=== PATIENT | male | born 1950 | race Caucasian/White ===

== ENCOUNTER 2017-06-18 15:29 | Inpatient (IN) | payer MEDICAID ==
[~2017-06-18] VITALS: Ht 172.7 cm; Wt 74.6 kg
[2017-06-18] MEDS ORDERED: HYDROcodone/APAP 5/325 TABLET PO ONE (16:30)
[2017-06-18] MEDS ORDERED: OMEP20TA62 PO (16:59)
[2017-06-18] MEDS ORDERED: SODIUM CHLORIDE FLUSH 10ML SYR IVF ONE (17:00)
[2017-06-18] MEDS ORDERED: ONDANSETRON 2MG/ML, 2ML IVPush ONE (17:00)
[2017-06-18] MEDS ORDERED: HYDROmorphone 1 MG/ML, 1ML IVPush PRN (17:00)
[2017-06-18] MEDS ORDERED: CLINDAMYCIN PMX 600MG/50ML 50 ML IV ONE (17:00)
[2017-06-18 17:19] LABS: HEMATOCRIT 34.5 % (39.2-51.8); HEMOGLOBIN 11.7 g/dL (13.7-18.0); WHITE BLOOD COUNT 5.3 x10^3/uL (3.4-10)
[2017-06-18] MEDS ORDERED: HYDROmorphone 1 MG/ML, 1ML ONE (17:23)
[2017-06-18] MEDS ORDERED: ONDANSETRON 2MG/ML, 2ML ONE (17:23)
[2017-06-18] MEDS ORDERED: CLINDAMYCIN PMX 600MG/50ML 50 ML ONE (17:23)
[2017-06-18 17:32] LABS: ASPARTATE AMINO TRANSFERASE 27 U/L (15-37); BLOOD UREA NITROGEN 17 mg/dL (7-18)
[2017-06-18] MEDS ORDERED: DIPH,PERTUSS(ACELL),TET VAC/PF 0.5 ML IM-VACC ONE (19:00)
[2017-06-18] MEDS ORDERED: BACITRACIN ZINC OINT 500U/GM, 0.9 GM ONE (19:11)
[2017-06-18] MEDS ORDERED: morphine SULFATE 10 MG/ML, 1ML IVPush PRN (19:30)
[2017-06-18] MEDS ORDERED: BISACODYL 10 MG SUPP PR PRN (19:30)
[2017-06-18] MEDS ORDERED: DOCUSATE 100 MG CAPSULE PO PRN (19:30)
[2017-06-18] MEDS ORDERED: ONDANSETRON 2MG/ML, 2ML IVPush PRN (19:30)
[2017-06-18] MEDS ORDERED: VANCOMYCIN PER PHARMACY MC PRN (19:30)
[2017-06-18] MEDS ORDERED: POLYETHYLENE GLYCOL 17 GM PACKET PO PRN (19:30)
[2017-06-18] MEDS ORDERED: PROMETHAZINE 25 MG/ML, 1ML IM PRN (19:30)
[2017-06-18] MEDS ORDERED: hydrALAzine 20 MG/ML, 1ML IVPush PRN (19:30)
[2017-06-18] MEDS ORDERED: ACETAMINOPHEN 325 MG TABLET PO PRN (19:30)
[2017-06-18 19:47] LABS: DAU SCREEN DISCLAIMER
[2017-06-18] MEDS ORDERED: PHARMACOKINETIC MONITORING MC PRN (20:30)
[2017-06-18] MEDS ORDERED: PHARMACOKINETIC CONSULTATION MC ONE (20:30)
[2017-06-18] MEDS: LACTATED RINGERS 1,000 ML IV SCH (22:08)
[2017-06-18] MEDS: CLINDAMYCIN PMX 600MG/50ML 50 ML IV SCH (22:09)
[2017-06-18] MEDS: LACTOBACILLUS CHEW TABLET PO SCH (22:09)
[2017-06-18] MEDS: VANCOMYCIN 1,400 MG in SODIUM CHLORIDE 0.9% 250 ML IV SCH (23:08)
[2017-06-18] MEDS: OXYcodone IR 5MG TABLET PO PRN (23:47)
[2017-06-19 03:52] VITALS: BP 110/64
[2017-06-19 05:23] LABS: HEMATOCRIT 35.5 % (39.2-51.8); HEMOGLOBIN 11.9 g/dL (13.7-18.0); WHITE BLOOD COUNT 5.8 x10^3/uL (3.4-10)
[2017-06-19 05:39] LABS: BLOOD UREA NITROGEN 14 mg/dL (7-18)
[2017-06-19] MEDS: CLINDAMYCIN PMX 600MG/50ML 50 ML IV SCH ×3 (05:56→21:39)
[2017-06-19 08:22] VITALS: BP 108/65
[2017-06-19] MEDS: LACTOBACILLUS CHEW TABLET PO SCH ×3 (09:42→21:39)
[2017-06-19] MEDS: LACTATED RINGERS 1,000 ML IV SCH ×2 (10:38→21:39)
[2017-06-19] MEDS: VANCOMYCIN 1,400 MG in SODIUM CHLORIDE 0.9% 250 ML IV SCH ×2 (10:38→23:07)
[2017-06-19 14:13] VITALS: BP 116/71
[2017-06-19] MEDS: OXYcodone IR 5MG TABLET PO PRN ×2 (17:03→17:58)
[2017-06-19 19:01] VITALS: BP 103/65
[2017-06-20] MEDS: OXYcodone IR 5MG TABLET PO PRN ×3 (00:42→21:20)
[2017-06-20 02:18] VITALS: BP 122/73
[2017-06-20] MEDS: CLINDAMYCIN PMX 600MG/50ML 50 ML IV SCH (06:20)
[2017-06-20] MEDS: LACTATED RINGERS 1,000 ML IV SCH ×2 (06:22→14:30)
[2017-06-20] MEDS ORDERED: BACITRACIN 50,000 UNIT ONE (07:56)
[2017-06-20] MEDS ORDERED: MIDAZOLAM 1 MG/ML, 2ML ONE (08:05)
[2017-06-20] MEDS ORDERED: FENTANYL PF 250 MCG/5ML ONE (08:06)
[2017-06-20] MEDS ORDERED: METOCLOPRAMIDE 5 MG/ML, 2ML IV PRN (09:00)
[2017-06-20] MEDS ORDERED: OXYcodone 5 MG/5 ML ORAL.SOL UDC PO PRN (09:00)
[2017-06-20] MEDS ORDERED: ALBUTEROL SULFATE 2.5 MG/3 ML NPPB PRN (09:00)
[2017-06-20] MEDS ORDERED: PROMETHAZINE 25 MG/ML, 1ML IV PRN (09:00)
[2017-06-20] MEDS ORDERED: METOPROLOL 1 MG/ML, 5ML IV PRN (09:00)
[2017-06-20] MEDS ORDERED: hydrALAzine 20 MG/ML, 1ML IV PRN (09:00)
[2017-06-20] MEDS ORDERED: ACETAMINOPHEN 325 MG TABLET PO PRN (09:00)
[2017-06-20] MEDS ORDERED: HYDROcodone/APAP 7.5-325MG/15ML UDC PO PRN (09:00)
[2017-06-20] MEDS ORDERED: EPHEDRINE 50 MG/ML, 1ML IVPush PRN (09:00)
[2017-06-20] MEDS ORDERED: MEPERIDINE/PF 25MG/0.5ML IVPush PRN (09:00)
[2017-06-20] MEDS ORDERED: LABETALOL 5MG/ML, 20ML IV PRN (09:00)
[2017-06-20] MEDS ORDERED: ONDANSETRON 2MG/ML, 2ML IVPush PRN (09:00)
[2017-06-20] MEDS: LACTOBACILLUS CHEW TABLET PO SCH ×4 (09:00→21:19)
[2017-06-20] MEDS ORDERED: NEOSPORIN OINT, 15GM ONE (09:23)
[2017-06-20] MEDS ORDERED: HYDROmorphone 2 MG/ML, 1ML ONE (10:00)
[2017-06-20] MEDS ORDERED: FENTANYL PF 100 MCG/2ML ONE (10:00)
[2017-06-20] MEDS ORDERED: OXYcodone 5 MG/5 ML ORAL.SOL UDC ONE (10:01)
[2017-06-20] MEDS: FENTANYL PF 100 MCG/2ML IV PRN ×2 (10:02→10:13)
[2017-06-20] MEDS: HYDROmorphone 1 MG/ML, 1ML IV PRN ×4 (10:20→10:44)
[2017-06-20 14:00] VITALS: BP 127/75
[2017-06-20] MEDS: ERGOCALCIFEROL 50,000 UNIT CAPSULE PO SCH (15:55)
[2017-06-20] MEDS: CEFAZOLIN PMX 1GM/50ML 50 ML IV SCH (16:13)
[2017-06-20] MEDS ORDERED: GLYCOPYRROLATE 0.2MG/1ML ONE (16:57)
[2017-06-20] MEDS ORDERED: CEFAZOLIN 1,000 MG ONE (16:57)
[2017-06-20] MEDS ORDERED: SUCCINYLCHOLINE 20 MG/ML, 10ML ONE (16:57)
[2017-06-20] MEDS ORDERED: DEXAMETHASONE 4 MG/ML, 1ML ONE (16:57)
[2017-06-20] MEDS ORDERED: ONDANSETRON 2MG/ML, 2ML ONE (16:57)
[2017-06-20] MEDS ORDERED: ROCURONIUM 10 MG/ML ONE (16:57)
[2017-06-20] MEDS ORDERED: PROPOFOL 10 MG/ML, 20ML ONE (16:57)
[2017-06-20 18:57] VITALS: BP 129/76
[2017-06-20] MEDS: ZOLPIDEM 5MG TABLET PO PRN (21:20)
[2017-06-21] MEDS: CEFAZOLIN PMX 1GM/50ML 50 ML IV SCH ×2 (00:10→07:31)
[2017-06-21 03:57] VITALS: BP 106/71
[2017-06-21] MEDS: LACTOBACILLUS CHEW TABLET PO SCH ×3 (07:31→20:46)
[2017-06-21 07:44] VITALS: BP 100/55
[2017-06-21] MEDS: OXYcodone IR 5MG TABLET PO PRN ×2 (10:47→18:21)
[2017-06-21 12:19] LABS: HEMATOCRIT 38.8 % (39.2-51.8); HEMOGLOBIN 13.1 g/dL (13.7-18.0); WHITE BLOOD COUNT 11.6 x10^3/uL (3.4-10)
[2017-06-21] MEDS: ENOXAPARIN 40 MG/0.4 ML SQ SCH (12:42)
[2017-06-21 13:11] VITALS: BP 111/57
[2017-06-21 19:46] VITALS: BP 99/57
[2017-06-22 00:33] VITALS: BP 108/63
[2017-06-22 07:10] VITALS: BP 112/68
[2017-06-22] MEDS: LACTOBACILLUS CHEW TABLET PO SCH ×3 (08:06→20:38)
[2017-06-22] MEDS ORDERED: POLY17PO5 PO (08:17)
[2017-06-22] MEDS ORDERED: ERGO500017 PO (08:17)
[2017-06-22] MEDS ORDERED: ENOX40SY4 SQ (08:17)
[2017-06-22] MEDS ORDERED: OXYC5TAB3 PO (08:17)
[2017-06-22] MEDS ORDERED: SULF1TAB24 PO (08:23)
[2017-06-22] MEDS: MEROPENEM 500 MG in SODIUM CHLORIDE 0.9% 100 ML IV SCH ×2 (09:49→16:44)
[2017-06-22] MEDS ORDERED: VANCOMYCIN PER PHARMACY MC PRN (10:00)
[2017-06-22] MEDS ORDERED: PHARMACOKINETIC CONSULTATION MC ONE (10:00)
[2017-06-22] MEDS ORDERED: PHARMACOKINETIC MONITORING MC PRN (10:00)
[2017-06-22 10:03] LABS: BLOOD UREA NITROGEN 13 mg/dL (7-18)
[2017-06-22 10:11] LABS: HEMATOCRIT 39.1 % (39.2-51.8); HEMOGLOBIN 13.1 g/dL (13.7-18.0)
[2017-06-22] MEDS: VANCOMYCIN 1,500 MG in SODIUM CHLORIDE 0.9% 250 ML IV SCH ×2 (11:49→23:38)
[2017-06-22] MEDS: ENOXAPARIN 40 MG/0.4 ML SQ SCH (11:49)
[2017-06-22] MEDS: OXYcodone IR 5MG TABLET PO PRN ×3 (11:55→22:11)
[2017-06-22 14:20] VITALS: BP 100/57
[2017-06-22 18:20] VITALS: BP 96/55
[2017-06-23 00:45] VITALS: BP 108/76
[2017-06-23] MEDS: MEROPENEM 500 MG in SODIUM CHLORIDE 0.9% 100 ML IV SCH ×3 (02:08→17:34)
[2017-06-23 08:00] VITALS: BP 100/70
[2017-06-23] MEDS: LACTOBACILLUS CHEW TABLET PO SCH ×3 (08:51→19:49)
[2017-06-23] MEDS: OXYcodone IR 5MG TABLET PO PRN ×3 (08:52→19:49)
[2017-06-23] MEDS: VANCOMYCIN 1,500 MG in SODIUM CHLORIDE 0.9% 250 ML IV SCH ×2 (11:27→23:48)
[2017-06-23] MEDS: ENOXAPARIN 40 MG/0.4 ML SQ SCH (12:30)
[2017-06-23 15:30] VITALS: BP 101/58
[2017-06-23 18:39] VITALS: BP 128/62
[2017-06-24 00:57] VITALS: BP 104/45
[2017-06-24] MEDS: MEROPENEM 500 MG in SODIUM CHLORIDE 0.9% 100 ML IV SCH ×3 (02:17→17:22)
[2017-06-24] MEDS: OXYcodone IR 5MG TABLET PO PRN ×4 (05:42→21:12)
[2017-06-24 07:15] VITALS: BP 97/58
[2017-06-24] MEDS: LACTOBACILLUS CHEW TABLET PO SCH ×3 (09:17→21:11)
[2017-06-24] MEDS: ALUMINUM/MAG/SIMETHICONE 30 ML UDC PO PRN (10:21)
[2017-06-24] MEDS: DOCUSATE 100 MG CAPSULE PO SCH (10:21)
[2017-06-24] MEDS: VANCOMYCIN 1,500 MG in SODIUM CHLORIDE 0.9% 250 ML IV SCH (11:36)
[2017-06-24] MEDS: ENOXAPARIN 40 MG/0.4 ML SQ SCH ×2 (13:36→13:40)
[2017-06-24 14:04] VITALS: BP 115/71
[2017-06-24] MEDS: ZOLPIDEM 5MG TABLET PO PRN (23:35)
[2017-06-25 01:26] VITALS: BP 110/70
[2017-06-25] MEDS: MEROPENEM 500 MG in SODIUM CHLORIDE 0.9% 100 ML IV SCH ×3 (01:36→18:13)
[2017-06-25] MEDS: OXYcodone IR 5MG TABLET PO PRN ×4 (01:36→23:07)
[2017-06-25] MEDS: VANCOMYCIN 1,500 MG in SODIUM CHLORIDE 0.9% 250 ML IV SCH ×2 (05:13→23:07)
[2017-06-25 08:12] VITALS: BP 107/69
[2017-06-25] MEDS: LACTOBACILLUS CHEW TABLET PO SCH ×3 (09:07→20:45)
[2017-06-25] MEDS: DOCUSATE 100 MG CAPSULE PO SCH ×2 (09:07→20:45)
[2017-06-25] MEDS: ENOXAPARIN 40 MG/0.4 ML SQ SCH ×2 (12:30→13:34)
[2017-06-25 17:21] VITALS: BP 111/67
[2017-06-25 19:43] VITALS: BP 119/73
[2017-06-25] MEDS ORDERED: hydrALAzine 20 MG/ML, 1ML IVPush PRN (20:30)
[2017-06-25] MEDS ORDERED: PROMETHAZINE 25 MG/ML, 1ML IM PRN (20:30)
[2017-06-25] MEDS ORDERED: VANCOMYCIN PER PHARMACY MC PRN (20:30)
[2017-06-25] MEDS: ZOLPIDEM 5MG TABLET PO PRN (23:07)
[2017-06-26 01:17] VITALS: BP 122/70
[2017-06-26] MEDS: MEROPENEM 500 MG in SODIUM CHLORIDE 0.9% 100 ML IV SCH ×3 (02:41→18:41)
[2017-06-26 06:48] VITALS: BP 108/56
[2017-06-26 08:54] LABS: HEMATOCRIT 36.9 % (39.2-51.8); HEMOGLOBIN 12.3 g/dL (13.7-18.0); WHITE BLOOD COUNT 7.2 x10^3/uL (3.4-10)
[2017-06-26 09:01] LABS: BLOOD UREA NITROGEN 15 mg/dL (7-18)
[2017-06-26] MEDS: DOCUSATE 100 MG CAPSULE PO SCH ×2 (09:34→20:19)
[2017-06-26] MEDS: LACTOBACILLUS CHEW TABLET PO SCH ×3 (09:34→20:19)
[2017-06-26] MEDS: OXYcodone IR 5MG TABLET PO PRN (13:28)
[2017-06-26 13:34] VITALS: BP 109/65
[2017-06-26] MEDS: ALUMINUM/MAG/SIMETHICONE 30 ML UDC PO PRN (16:35)
[2017-06-26] MEDS: VANCOMYCIN 1,500 MG in SODIUM CHLORIDE 0.9% 250 ML IV SCH (16:35)
[2017-06-26 19:13] VITALS: BP 117/77
[2017-06-26] MEDS: ENOXAPARIN 40 MG/0.4 ML SQ SCH (20:20)
[2017-06-27 00:25] VITALS: BP 114/66
[2017-06-27] MEDS: MEROPENEM 500 MG in SODIUM CHLORIDE 0.9% 100 ML IV SCH ×3 (02:38→18:07)
[2017-06-27] MEDS: ALUMINUM/MAG/SIMETHICONE 30 ML UDC PO PRN ×3 (02:39→23:13)
[2017-06-27] MEDS: OXYcodone IR 5MG TABLET PO PRN ×4 (05:11→19:26)
[2017-06-27 08:05] VITALS: BP 115/73
[2017-06-27] MEDS: DOCUSATE 100 MG CAPSULE PO SCH ×2 (08:35→20:11)
[2017-06-27] MEDS: LACTOBACILLUS CHEW TABLET PO SCH ×3 (08:35→20:11)
[2017-06-27] MEDS: VANCOMYCIN 1,500 MG in SODIUM CHLORIDE 0.9% 250 ML IV SCH (11:01)
[2017-06-27 15:00] VITALS: BP 109/66
[2017-06-27] MEDS: ERGOCALCIFEROL 50,000 UNIT CAPSULE PO SCH (15:35)
[2017-06-27 18:36] VITALS: BP 100/60
[2017-06-27] MEDS: ENOXAPARIN 40 MG/0.4 ML SQ SCH (20:11)
[2017-06-28] MEDS: MEROPENEM 500 MG in SODIUM CHLORIDE 0.9% 100 ML IV SCH ×3 (02:18→18:31)
[2017-06-28] MEDS: ALUMINUM/MAG/SIMETHICONE 30 ML UDC PO PRN ×2 (03:32→20:22)
[2017-06-28 04:15] VITALS: BP 108/67
[2017-06-28] MEDS: VANCOMYCIN 1,500 MG in SODIUM CHLORIDE 0.9% 250 ML IV SCH ×2 (05:08→23:10)
[2017-06-28] MEDS: OXYcodone IR 5MG TABLET PO PRN ×3 (06:16→16:09)
[2017-06-28 07:34] VITALS: BP 110/72
[2017-06-28] MEDS: LACTOBACILLUS CHEW TABLET PO SCH ×3 (08:16→20:10)
[2017-06-28] MEDS: DOCUSATE 100 MG CAPSULE PO SCH ×2 (08:16→20:10)
[2017-06-28 12:35] VITALS: BP 104/55
[2017-06-28 20:07] VITALS: BP 106/62
[2017-06-28] MEDS: ENOXAPARIN 40 MG/0.4 ML SQ SCH (20:11)
[2017-06-29] MEDS: MEROPENEM 500 MG in SODIUM CHLORIDE 0.9% 100 ML IV SCH ×2 (02:30→10:19)
[2017-06-29 04:00] VITALS: BP 104/72
[2017-06-29] MEDS: ALUMINUM/MAG/SIMETHICONE 30 ML UDC PO PRN ×2 (04:15→10:14)
[2017-06-29 07:13] VITALS: BP 116/70
[2017-06-29] MEDS: DOCUSATE 100 MG CAPSULE PO SCH (08:24)
[2017-06-29] MEDS: LACTOBACILLUS CHEW TABLET PO SCH ×2 (08:25→17:08)
[2017-06-29] MEDS: OXYcodone IR 5MG TABLET PO PRN ×2 (10:19→16:06)
[2017-06-29 14:01] VITALS: BP 96/63
[2017-06-29] MEDS: VANCOMYCIN 1,500 MG in SODIUM CHLORIDE 0.9% 250 ML IV SCH (17:00)
[2017-06-29 18:15] VITALS: BP 130/70
== END 2017-06-29 18:41 | disposition home health service (06) | DRG 493 ==
LOC: ED 19:52 → EDIP 20:06 → 4NOR 20:12
PROC: 0QSH36Z Reposition Left Tibia with Intramedullary Internal Fixation Device, Percutaneous Approach (ICD-10-PCS; 2017-06-20)
PROC: 0QSK36Z Reposition Left Fibula with Intramedullary Internal Fixation Device, Percutaneous Approach (ICD-10-PCS; principal; 2017-06-20 08:00)
DX: S82.422A Displaced transverse fracture of shaft of left fibula, initial encounter for closed fracture (principal); L03.116 Cellulitis of left lower limb; E44.1 Mild protein-calorie malnutrition; L03.115 Cellulitis of right lower limb; S82.392A Other fracture of lower end of left tibia, initial encounter for closed fracture; K21.9 Gastro-esophageal reflux disease without esophagitis; S82.202A Unspecified fracture of shaft of left tibia, initial encounter for closed fracture; F17.200 Nicotine dependence, unspecified, uncomplicated; F15.10 Other stimulant abuse, uncomplicated; F41.9 Anxiety disorder, unspecified; E55.9 Vitamin D deficiency, unspecified; D64.9 Anemia, unspecified; Z88.0 Allergy status to penicillin; Z68.25 Body mass index [BMI] 25.0-25.9, adult
CPT/HCPCS: 36415; 71010; 76001; 80048; 80053; 80202; 80307; 81003; 82306; 85025; 85610; 85651; 86140; 87040; 93005; 96374; 96375; C1713; J0690; J1100; J1170; J1650; J2185; J2250; J2405; J2704; J3010; J3370; J3490; J0330; J7050; J7120

== ENCOUNTER 2017-06-29 23:43 | Emergency (ER) | payer MEDICAID ==
[~2017-06-29] VITALS: Ht 172.7 cm; Wt 72.0 kg
[~2017-06-29 23:43] MED LIST: ENOX40SY4 SQ; ERGO500017 PO; OMEP20TA62 PO; OXYC5TAB3 PO; POLY17PO5 PO; SULF1TAB24 PO
[2017-06-30] MEDS ORDERED: HYDROmorphone 1 MG/ML, 1ML ONE (00:45)
[2017-06-30] MEDS ORDERED: HYDROmorphone 1 MG/ML, 1ML IM ONE (01:00)
[2017-06-30 01:27] VITALS: BP 118/68
== END 2017-06-30 01:30 | disposition home or self-care (01) ==
LOC: ED 23:44
DX: M79.662 Pain in left lower leg (principal)
CPT/HCPCS: 96372; 99283; J1170

== ENCOUNTER 2017-08-01 14:54 | Emergency (ER) | payer MEDICAID ==
[~2017-08-01] VITALS: Ht 177.8 cm; Wt 69.0 kg
[2017-08-01 14:56] VITALS: BP 116/72
== END 2017-08-01 15:08 | disposition left against medical advice (07) ==
LOC: ED 15:02
DX: R10.9 Unspecified abdominal pain (principal); Z53.21 Procedure and treatment not carried out due to patient leaving prior to being seen by health care provider

== ENCOUNTER 2017-08-01 15:17 | Emergency (ER) | payer MEDICAID ==
[~2017-08-01] VITALS: Ht 177.8 cm; Wt 69.7 kg
[2017-08-01 16:04] LABS: HEMATOCRIT 44.6 % (39.2-51.8); HEMOGLOBIN 14.8 g/dL (13.7-18.0); WHITE BLOOD COUNT 7.5 x10^3/uL (3.4-10)
[2017-08-01 16:12] LABS: BLOOD UREA NITROGEN 17 mg/dL (7-18)
[2017-08-01 16:15] LABS: ASPARTATE AMINO TRANSFERASE 17 U/L (15-37)
[2017-08-01 19:45] VITALS: BP 111/70
== END 2017-08-01 19:47 | disposition home or self-care (01) ==
LOC: ED 15:45
DX: K85.10 Biliary acute pancreatitis without necrosis or infection (principal); F15.20 Other stimulant dependence, uncomplicated; Z88.0 Allergy status to penicillin
CPT/HCPCS: 36415; 76700; 80053; 81001; 83690; 85025; 87086; 99285

== ENCOUNTER 2017-08-22 15:19 | Emergency (ER) | payer MEDICAID ==
[~2017-08-22] VITALS: Ht 175.3 cm; Wt 70.9 kg
[2017-08-22 16:29] LABS: HEMATOCRIT 45.4 % (39.2-51.8); HEMOGLOBIN 15.1 g/dL (13.7-18.0); WHITE BLOOD COUNT 6.8 x10^3/uL (3.4-10)
[2017-08-22] MEDS ORDERED: CEPHALEXIN 500 MG CAPSULE PO SCH (17:30)
[2017-08-22] MEDS ORDERED: CEPHALEXIN 500 MG CAPSULE ONE (17:35)
[2017-08-22 17:40] VITALS: BP 128/86
== END 2017-08-22 17:45 | disposition home or self-care (01) ==
LOC: ED 17:11
DX: S89.92XA Unspecified injury of left lower leg, initial encounter (principal); L03.116 Cellulitis of left lower limb; F15.120 Other stimulant abuse with intoxication, uncomplicated
CPT/HCPCS: 36415; 85025; 99285

== ENCOUNTER 2017-08-23 16:26 | Emergency (ER) | payer MEDICAID ==
[~2017-08-23] VITALS: Ht 175.3 cm; Wt 71.1 kg
[2017-08-23 16:30] VITALS: BP 121/80
== END 2017-08-23 17:08 | disposition home or self-care (01) ==
LOC: ED 17:02
DX: L03.116 Cellulitis of left lower limb (principal)
CPT/HCPCS: 99283

== ENCOUNTER 2017-08-24 14:38 | Emergency (ER) | payer MEDICAID ==
[~2017-08-24] VITALS: Ht 177.8 cm; Wt 70.0 kg
[2017-08-24] MEDS ORDERED: CEFAZOLIN 1,000 MG ONE (15:19)
[2017-08-24] MEDS ORDERED: CEFAZOLIN 1,000 MG IM ONE (15:30)
[2017-08-24 16:13] VITALS: BP 107/61
== END 2017-08-24 16:16 | disposition home or self-care (01) ==
LOC: ED 15:29
DX: L03.116 Cellulitis of left lower limb (principal); Z88.0 Allergy status to penicillin
CPT/HCPCS: 96372; 99283; J0690

== ENCOUNTER 2017-09-09 20:39 | Emergency (ER) | payer MEDICAID ==
[~2017-09-09] VITALS: Ht 175.3 cm; Wt 70.0 kg
[2017-09-09 20:42] VITALS: BP 113/72
[2017-09-09] MEDS ORDERED: PERMETHRIN CRM 5%, 60GM ONE (21:35)
== END 2017-09-09 21:46 | disposition home or self-care (01) ==
LOC: ED 21:40
DX: R21 Rash and other nonspecific skin eruption (principal)
CPT/HCPCS: 99283

== ENCOUNTER 2018-02-07 07:01 | Emergency (ER) | payer MEDICARE ==
[~2018-02-07] VITALS: Ht 175.3 cm; Wt 60.0 kg
[2018-02-07 07:45] LABS: BASOPHILS # (AUTO) 0.08 x10^3/uL (0-0.1); BASOPHILS % (AUTO) 1 % (0-1); EOSINOPHILS # (AUTO) 0.16 x10^3/uL (0-0.4); EOSINOPHILS % (AUTO) 2 % (1-7); LYMPHOCYTES % (AUTO) 29 % (22-44); MD NO; MEAN CORPUSCULAR HEMOGLOBIN 31.4 pg (27.5-34.5); MEAN CORPUSCULAR HGB CONC 33.6 g/dL (33.2-36.2); MEAN CORPUSCULAR VOLUME 93.4 fL (81-97); MEAN PLATELET VOLUME 6.7 fL (7.4-10.4); MONOCYTES # (AUTO) 0.66 x10^3/uL (0.2-0.8); MONOCYTES % (AUTO) 10 % (2-9); NEUTROPHILS # (AUTO) 3.97 x10^3/uL (1.8-6.8); NEUTROPHILS % (AUTO) 58 % (42-75); PLATELET COUNT 332 x10^3/uL (130-400); RED BLOOD COUNT 5.02 x10^6/uL (4.38-5.82); RED CELL DISTRIBUTION WIDTH 14.5 % (9.4-14.8)
[2018-02-07 07:56] LABS: ALANINE AMINOTRANSFERASE 20 U/L (12-78); ALBUMIN 3.2 g/dL (3.4-5.0); ANION GAP 4 mmol/L (5-15); CALCIUM 8.7 mg/dL (8.5-10.1); CHLORIDE 107 mmol/L (98-107)
[2018-02-07 07:59] LABS: ALKALINE PHOSPHATASE 127 U/L (45-117); BILIRUBIN,TOTAL 0.5 mg/dL (0.2-1.0); CREATININE 0.56 mg/dL (0.7-1.3); TOTAL PROTEIN 7.1 g/dL (6.4-8.2)
[2018-02-07 11:50] VITALS: BP 101/71
== END 2018-02-07 11:53 | disposition home or self-care (01) ==
LOC: ED 08:53
DX: R53.1 Weakness (principal); H65.02 Acute serous otitis media, left ear; B34.9 Viral infection, unspecified; F15.10 Other stimulant abuse, uncomplicated; Z72.9 Problem related to lifestyle, unspecified; Z59.0 Homelessness
CPT/HCPCS: 36415; 80053; 85025; 93005; 99285

== ENCOUNTER 2018-02-07 18:23 | Emergency (ER) | payer MEDICARE ==
[~2018-02-07] VITALS: Ht 175.3 cm; Wt 64.0 kg
[2018-02-07 18:27] VITALS: BP 104/69
== END 2018-02-07 20:07 | disposition home or self-care (01) ==
LOC: ED 20:05
DX: H65.03 Acute serous otitis media, bilateral (principal); J02.8 Acute pharyngitis due to other specified organisms; B96.89 Other specified bacterial agents as the cause of diseases classified elsewhere; Z88.0 Allergy status to penicillin; Z59.0 Homelessness
CPT/HCPCS: 87081; 87880; 99284

== ENCOUNTER 2018-07-06 11:05 | Inpatient (IN) | payer MEDICARE ==
[~2018-07-06] VITALS: Ht 175.3 cm; Wt 69.2 kg
[2018-07-06 11:50] LABS: BASOPHILS # (AUTO) 0.05 x10^3/uL (0-0.1); BASOPHILS % (AUTO) 1 % (0-1); EOSINOPHILS # (AUTO) 0.19 x10^3/uL (0-0.4); EOSINOPHILS % (AUTO) 2 % (1-7); LYMPHOCYTES # (AUTO) 1.39 x10^3/uL (1-3.4); LYMPHOCYTES % (AUTO) 18 % (22-44); MD NO; MEAN CORPUSCULAR HEMOGLOBIN 32.4 pg (27.5-34.5); MEAN CORPUSCULAR HGB CONC 34.2 g/dL (33.2-36.2); MEAN CORPUSCULAR VOLUME 94.9 fL (81-97); MEAN PLATELET VOLUME 6.5 fL (7.4-10.4); MONOCYTES # (AUTO) 0.71 x10^3/uL (0.2-0.8); MONOCYTES % (AUTO) 9 % (2-9); NEUTROPHILS # (AUTO) 5.43 x10^3/uL (1.8-6.8); NEUTROPHILS % (AUTO) 70 % (42-75); PLATELET COUNT 258 x10^3/uL (130-400); RED BLOOD COUNT 2.55 x10^6/uL (4.38-5.82); RED CELL DISTRIBUTION WIDTH 14.2 % (9.4-14.8)
[2018-07-06 12:04] LABS: ALBUMIN 2.5 g/dL (3.4-5.0); ANION GAP 5 mmol/L (5-15); CHLORIDE 101 mmol/L (98-107); CREATININE 0.48 mg/dL (0.7-1.3)
[2018-07-06] MEDS ORDERED: ONDANSETRON ODT 4 MG PO PRN (13:00)
[2018-07-06] MEDS ORDERED: ONDANSETRON 2MG/ML, 2ML IVPush PRN ×2 (13:00)
[2018-07-06] MEDS ORDERED: POLYETHYLENE GLYCOL 17 GM PACKET PO PRN (13:00)
[2018-07-06] MEDS ORDERED: ACETAMINOPHEN 325 MG TABLET PO PRN ×2 (13:00)
[2018-07-06] MEDS ORDERED: BISACODYL 10 MG SUPP PR PRN (13:00)
[2018-07-06] MEDS ORDERED: LABETALOL 5MG/ML, 20ML IVPush PRN ×2 (13:00)
[2018-07-06 13:08] LABS: FREE T4 (FREE THYROXINE) 1.32 ng/dL (0.76-1.46); TROPONIN I < 0.015 ng/mL (0.000-0.045)
[2018-07-06 15:19] VITALS: BP 107/70
[2018-07-06] MEDS: SODIUM CHLORIDE FLUSH 10ML SYR IVF SCH (20:02)
[2018-07-06] MEDS ORDERED: ATORVASTATIN 20 MG TABLET PO SCH (21:00)
[2018-07-06 21:16] VITALS: BP 103/68
[2018-07-07 03:26] VITALS: BP 109/68
[2018-07-07 07:02] VITALS: BP 118/75
[2018-07-07] MEDS: SODIUM CHLORIDE FLUSH 10ML SYR IVF SCH ×2 (08:56→20:21)
[2018-07-07] MEDS: HYDROcodone/APAP 5/325 TABLET PO PRN ×2 (08:56→13:56)
[2018-07-07] MEDS ORDERED: SENNA/DOCUSATE TABLET PO SCH (09:00)
[2018-07-07 13:50] VITALS: BP 119/80
[2018-07-07 22:19] VITALS: BP 125/78
[2018-07-08 02:24] VITALS: BP 129/67
[2018-07-08] MEDS: HYDROcodone/APAP 5/325 TABLET PO PRN ×4 (02:27→22:26)
[2018-07-08 05:25] LABS: BASOPHILS # (AUTO) 0.03 x10^3/uL (0-0.1); BASOPHILS % (AUTO) 0 % (0-1); EOSINOPHILS # (AUTO) 0.25 x10^3/uL (0-0.4); EOSINOPHILS % (AUTO) 3 % (1-7); LYMPHOCYTES # (AUTO) 1.75 x10^3/uL (1-3.4); LYMPHOCYTES % (AUTO) 21 % (22-44); MD NO; MEAN CORPUSCULAR HEMOGLOBIN 32.6 pg (27.5-34.5); MEAN CORPUSCULAR VOLUME 96.1 fL (81-97); MEAN PLATELET VOLUME 6.9 fL (7.4-10.4); MONOCYTES # (AUTO) 0.85 x10^3/uL (0.2-0.8); MONOCYTES % (AUTO) 10 % (2-9); NEUTROPHILS # (AUTO) 5.64 x10^3/uL (1.8-6.8); NEUTROPHILS % (AUTO) 66 % (42-75); PLATELET COUNT 315 x10^3/uL (130-400); RED BLOOD COUNT 2.63 x10^6/uL (4.38-5.82); RED CELL DISTRIBUTION WIDTH 14.5 % (9.4-14.8)
[2018-07-08 05:31] LABS: ANION GAP 6 mmol/L (5-15); CHLORIDE 100 mmol/L (98-107)
[2018-07-08 05:33] LABS: CREATININE 0.54 mg/dL (0.7-1.3)
[2018-07-08 07:05] VITALS: BP 106/66
[2018-07-08] MEDS: DOCUSATE 100 MG CAPSULE PO PRN ×2 (09:25→22:22)
[2018-07-08] MEDS: SODIUM CHLORIDE FLUSH 10ML SYR IVF SCH ×2 (09:25→22:27)
[2018-07-08 14:35] VITALS: BP 101/61
[2018-07-08] MEDS: POLYETHYLENE GLYCOL 17 GM PACKET PO PRN (16:14)
[2018-07-08] MEDS: FERROUS GLUCONATE 324 MG TABLET PO SCH (16:14)
[2018-07-08 20:39] VITALS: BP 104/64
[2018-07-09 00:14] VITALS: BP 106/63
[2018-07-09 07:14] VITALS: BP 113/52
[2018-07-09] MEDS: POLYETHYLENE GLYCOL 17 GM PACKET PO PRN (07:27)
[2018-07-09] MEDS: DOCUSATE 100 MG CAPSULE PO PRN (07:28)
[2018-07-09] MEDS: HYDROcodone/APAP 5/325 TABLET PO PRN ×3 (07:28→16:15)
[2018-07-09] MEDS: FERROUS GLUCONATE 324 MG TABLET PO SCH ×2 (07:28→16:15)
[2018-07-09] MEDS: SODIUM CHLORIDE FLUSH 10ML SYR IVF SCH (09:00)
[2018-07-09] MEDS ORDERED: DOCU-131 PO (11:24)
[2018-07-09] MEDS ORDERED: ACET325T14 PO (11:24)
[2018-07-09] MEDS ORDERED: TRAM50TA2 PO (11:24)
[2018-07-09] MEDS ORDERED: FERR325T16 PO (11:27)
[2018-07-09 13:50] VITALS: BP 110/72
== END 2018-07-09 17:00 | DRG 947 ==
LOC: ED 12:24 → EDIP 12:25 → ED 12:37 → 4NOR 14:51
PROVIDERS: ADMIT Hospitalist; ATTEND Hospitalist
DX: G89.11 Acute pain due to trauma (principal); R53.2 Functional quadriplegia; E87.1 Hypo-osmolality and hyponatremia; J98.11 Atelectasis; E44.0 Moderate protein-calorie malnutrition; D64.9 Anemia, unspecified; K21.9 Gastro-esophageal reflux disease without esophagitis; F17.200 Nicotine dependence, unspecified, uncomplicated; L53.9 Erythematous condition, unspecified; Z59.0 Homelessness; Z79.899 Other long term (current) drug therapy
CPT/HCPCS: 36415; 71045; 80048; 82040; 82728; 83540; 83550; 83735; 84100; 84439; 84466; 84484; 85025; 99285

== ENCOUNTER 2019-02-05 20:58 | Emergency (ER) | payer MEDICARE ==
[~2019-02-05] VITALS: Ht 175.3 cm; Wt 72.0 kg
[~2019-02-05 20:58] MED LIST changes: +ACET325T14 PO; +DOCU-131 PO; +FERR325T16 PO; +TRAM50TA2 PO
[2019-02-05 20:59] VITALS: BP 107/65
== END 2019-02-05 22:17 | disposition home or self-care (01) ==
LOC: ED 21:54
DX: M54.5 Low back pain (principal); F41.1 Generalized anxiety disorder; Z72.9 Problem related to lifestyle, unspecified; Z59.0 Homelessness
CPT/HCPCS: 72110; 99283

== ENCOUNTER 2019-09-13 16:16 | Emergency (ER) | payer MEDICARE ==
[~2019-09-13] VITALS: Ht 172.7 cm; Wt 70.7 kg
[2019-09-13 16:18] VITALS: BP 112/49
--- NOTE | 2019-09-13 16:44 | NUR ---
PT HAS CO OF PAIN IN LEGS. PT STATES "I HAVE PIN WORMS AND REFLUX" PT IS WANTING NEXIUM. DENIES SOB, OR CHEST PAIN. MED STUDENT IN ROOM.
--- NOTE | 2019-09-13 18:03 | NUR ---
PT IN IMAGING. PT CONCERNED ABOUT IV IN RIGHT ARM. CONFIRMED W RADIOLOGIST IV IN RIGHT ARM FOR IAMAGING
--- NOTE | 2019-09-13 18:06 | NUR ---
Claudia vaughn in [place] - 09/13/19 at 1814 by FAHAD Patient/Caregiver given discharge instructions and they have confirmed that they understand the instructions. Patient ambulatory with steady gait.
--- NOTE | 2019-09-13 18:14 | NUR ---
PT NOT IN ROOM. ELOPED. BRISCOE AWARE
== END 2019-09-13 18:15 | disposition left against medical advice (07) ==
LOC: ED 18:09
DX: K21.9 Gastro-esophageal reflux disease without esophagitis (principal)
CPT/HCPCS: 93005; 99283

== ENCOUNTER 2020-06-05 00:19 | Emergency (ER) | payer MEDICARE, MEDICAID ==
[~2020-06-05] VITALS: Ht 177.8 cm; Wt 75.0 kg
[2020-06-05 00:26] VITALS: BP 138/86
--- NOTE | 2020-06-05 01:34 | NUR ---
called in the lobby, no answer
--- NOTE | 2020-06-05 01:59 | NUR ---
patient not in the lobby. called 3 times, no answer.
== END 2020-06-05 02:02 | disposition left against medical advice (07) ==
LOC: ED 01:55
DX: K08.89 Other specified disorders of teeth and supporting structures (principal); Z53.21 Procedure and treatment not carried out due to patient leaving prior to being seen by health care provider

== ENCOUNTER 2020-07-06 21:23 | Emergency (ER) | payer MEDICAID, MEDICARE ==
[~2020-07-06] VITALS: Ht 177.8 cm; Wt 80.0 kg
[2020-07-06] MEDS ORDERED: MORPHINE SULFATE 4 MG/ML, 1ML IVPush PRN (22:00)
[2020-07-06] MEDS ORDERED: ONDANSETRON 2MG/ML, 2ML IVPush ONE (22:00)
[2020-07-06 22:02] LABS: BASOPHILS # (AUTO) 0.01 x10^3/uL (0-0.1); BASOPHILS % (AUTO) 0 % (0-1); EOSINOPHILS # (AUTO) 0.11 x10^3/uL (0-0.4); EOSINOPHILS % (AUTO) 2 % (1-7); LYMPHOCYTES # (AUTO) 0.52 x10^3/uL (1-3.4); LYMPHOCYTES % (AUTO) 7 % (22-44); MD NO; MEAN CORPUSCULAR HEMOGLOBIN 31.2 pg (27.5-34.5); MEAN CORPUSCULAR HGB CONC 33.2 g/dL (33.2-36.2); MEAN CORPUSCULAR VOLUME 94.1 fL (81-97); MEAN PLATELET VOLUME 6.6 fL (7.4-10.4); MONOCYTES # (AUTO) 0.24 x10^3/uL (0.2-0.8); MONOCYTES % (AUTO) 3 % (2-9); NEUTROPHILS # (AUTO) 6.32 x10^3/uL (1.8-6.8); NEUTROPHILS % (AUTO) 88 % (42-75); PLATELET COUNT 244 x10^3/uL (130-400); RED BLOOD COUNT 5.53 x10^6/uL (4.38-5.82); RED CELL DISTRIBUTION WIDTH 13.9 % (9.4-14.8)
[2020-07-06 22:11] LABS: ALANINE AMINOTRANSFERASE 28 U/L (12-78); ALBUMIN 3.8 g/dL (3.4-5.0); ANION GAP 6 mmol/L (5-15); CALCIUM 8.7 mg/dL (8.5-10.1); CHLORIDE 106 mmol/L (98-107); CREATININE 0.76 mg/dL (0.7-1.3)
[2020-07-06 22:16] LABS: ALKALINE PHOSPHATASE 105 U/L (45-117); BILIRUBIN,TOTAL 0.9 mg/dL (0.2-1.0); TOTAL PROTEIN 8.2 g/dL (6.4-8.2); TROPONIN I < 0.015 ng/mL (0.000-0.045)
[2020-07-06] MEDS ORDERED: PROMETHAZINE 25 MG/ML, 1ML ONE (22:51)
[2020-07-06] MEDS ORDERED: PROMETHAZINE 25 MG/ML, 1ML IM ONE (23:00)
--- NOTE | 2020-07-06 23:00 | NUR ---
PT MEDICATED PER JAN. CT AT BEDSIDE. PT DENIES ANY FURTHER NEEDS AT THIS TIME, CALL LIGHT IN REACH. REPORT TO LESLY SIMENTAL.
--- NOTE | 2020-07-06 23:00 | NUR ---
[facility] of pt. report from Nida GRACE. pt here for N/V and has been medicated. pt is currently in CT scan
[2020-07-06] MEDS ORDERED: OMNIPAQUE 350 MG/ML, 100ML BOTTLE ONE (23:11)
--- NOTE | 2020-07-06 23:20 | NUR ---
pt has bene returned to room. pt sleeping. no apparent distress
[2020-07-07] MEDS ORDERED: MAALOX/HYOSCYAMINE/LIDOCAINE 45 ML BTL PO ONE
[2020-07-07] MEDS ORDERED: MAALOX/HYOSCYAMINE/LIDOCAINE 45 ML BTL ONE (00:12)
[2020-07-07] MEDS ORDERED: ONDANSETRON 2MG/ML, 2ML ONE (00:22)
[2020-07-07 01:02] VITALS: BP 117/80
== END 2020-07-07 01:07 | disposition home or self-care (01) ==
LOC: ED 22:06
DX: K29.00 Acute gastritis without bleeding (principal); R11.2 Nausea with vomiting, unspecified; R07.89 Other chest pain; F15.10 Other stimulant abuse, uncomplicated; R00.0 Tachycardia, unspecified; K21.9 Gastro-esophageal reflux disease without esophagitis
CPT/HCPCS: 36415; 71045; 74177; 80053; 83690; 83880; 84484; 85025; 93005; 96372; 96374; 99285; J2405; J2550; Q9967